=== PATIENT | female | born 1995 | race American Indian/Alaskan Native ===

== ENCOUNTER 2025-02-08 22:29 | Emergency (ER) | payer MEDICAID ==
[~2025-02-08] VITALS: Ht 162.6 cm; Wt 69.5 kg
[2025-02-08 22:33] VITALS: TEMP 98.2
--- NOTE | 2025-02-08 22:55 | ELECTROCARDIOGRAPH REPORT ---
[facility] Test Date: 2025-02-08 Test Time: 22:34:48 Pat Name: DAJUAN MARTIN Department: EMERGENCY ROOM Room: Gender: F Cleaning Manager: ROMY : 1995 Requested By: SHEMAR TREVINO Order Number: [id number] Reading MD: Dr. Guy Figueroa Measurements Intervals [place] Rate: 119 P: 55 NM: 151 QRS: 56 QRSD: 93 T: 21 QT: 329 QTc: 463 Interpretive Statements Sinus tachycardia Electronically Signed On 02-09-2025 6:24:[address] Guy Figueroa Please click the below link to view image of tracing.
[2025-02-08 22:57] LABS: BASOPHILS # (AUTO) 0.1 X10'3 (0-0.2); BASOPHILS % (AUTO) 1.3 % (0-1); EOSINOPHILS # (AUTO) 0.2 X10'3 (0-0.9); EOSINOPHILS % (AUTO) 3.6 % (0-6); HEMATOCRIT 37.8 % (35.0-45.0); HEMOGLOBIN 12.9 g/dl (12.0-16.0); LYMPHOCYTES # (AUTO) 1.8 X10'3 (1.1-4.8); LYMPHOCYTES % (AUTO) 29.1 % (21-51); MEAN CORPUSCULAR HEMOGLOBIN 29.1 PG (27.0-31.0); MEAN CORPUSCULAR HGB CONC 34.2 g/dL (33.0-36.5); MEAN CORPUSCULAR VOLUME 85.2 FL (78-98); MEAN PLATELET VOLUME 7.4 FL (7.4-10.4); MONOCYTES # (AUTO) 0.6 X10'3 (0-0.9); MONOCYTES % (AUTO) 9.6 % (2-12); NEUTROPHILS # (AUTO) 3.5 X10'3 (1.8-7.7); NEUTROPHILS % (AUTO) 56.4 % (42-75); PLATELET COUNT 309 X10'3 (140-440); RED BLOOD COUNT 4.44 X10'6 (4.20-5.60); RED CELL DISTRIBUTION WIDTH 12.7 % (11.5-14.5); WHITE BLOOD COUNT 6.1 X10'3 (4.5-11.0)
[2025-02-08 23:13] LABS: ALANINE AMINOTRANSFERASE 20 U/L (12-78); ALBUMIN/GLOBULIN RATIO 1.3 (1.1-1.5); ALKALINE PHOSPHATASE 50 IU/L (46-116); ANION GAP 11 (8-16); ASPARTATE AMINO TRANSFERASE 16 U/L (10-37); BILIRUBIN,TOTAL 0.3 MG/DL (0.1-1.0); BLOOD UREA NITROGEN 10 MG/DL (7-18); BUN/CREATININE RATIO 16.4 (10.0-20.0); CALCIUM 8.4 MG/DL (8.5-10.1); CHLORIDE 103 MMOL/L (99-107); CREATININE 0.61 MG/DL (0.40-0.90); GLUCOSE 126 MG/DL (70-104); POTASSIUM 3.4 MMOL/L (3.5-5.1); SODIUM 140 MMOL/L (135-145); TOTAL CARBON DIOXIDE 26.3 MMOL/L (24-32); eCRCL 119 ML/MIN; eGFR > 90 ML/MIN
--- NOTE | 2025-02-08 23:15 | RADIOLOGY REPORT ---
CHEST RADIOGRAPH Indication: chest pain Technique: Single frontal view of the chest was obtained COMPARISON: None FINDINGS: Lines and Tubes: None Lungs: Clear Pleura: No effusion. No pneumothorax. Cardiomediastinal contours: Unremarkable Bones: Unremarkable IMPRESSION: 1. No acute disease.
[2025-02-08 23:23] LABS: BILIRUBIN,URINE NEGATIVE (Neg); CLARITY,URINE CLEAR (Clear); COLOR,URINE YELLOW (Yellow); GLUCOSE, URINE NEGATIVE (Neg); KETONES,URINE NEGATIVE (Neg); LEUKOCYTE ESTERASE ,URINE NEGATIVE (Neg); NITRITES, URINE NEGATIVE (Neg); OCCULT BLOOD,URINE NEGATIVE (Neg); PROTEIN,URINE NEGATIVE (Neg); UA COLLECTION TYPE VOIDED; UROBILINOGEN,URINE 0.2 E.U/dL (0.2-1.0)
[2025-02-08 23:25] LABS: URINE HCG NEGATIVE (NEG)
[2025-02-08 23:30] LABS: URINE AMPHETAMINE SCREEN NEGATIVE (Neg); URINE BARBITUATE SCREEN NEGATIVE (Neg); URINE BENZODIAZEPINES SCREEN NEGATIVE (Neg); URINE CANNABINOID SCREEN POSITIVE (Neg); URINE COCAINE SCREEN NEGATIVE (Neg); URINE METHADONE SCREEN NEGATIVE (Neg); URINE OPIATE SCREEN NEGATIVE (Neg); URINE PHENCYCLIDINE SCREEN NEGATIVE (Neg)
--- NOTE | 2025-02-09 00:09 | Physician Documentation ---
History of Present Illness ~ Chief Complaint: Chest Pain Stated Complaint: CHEST PALPITATIONS Time Seen by MD: 22:34 Mode of Arrival: Ambulatory HPI 29 year old female reports an episode of sternal chest pain and pressure as well as tingling in her arms while driving, starting about 20 minutes prior to calling EMS. On arrival she is improved. Denies fever, cough, N/V/D, urinary symptoms. Medication Reconciliation Allergies: Uncoded Allergies: PCN (Allergy, Severe, RASH/HIVES, 02/08/25) Review of Systems All Other Systems at this time: Reviewed and Negative Physical Exam Vital Signs: RN Vital Signs have been reviewed: Yes, Temperature: 98.2, Source: Oral, Heart Rate: 123, Respiratory Rate: 16, BP: 123/86, Pulse Oximetry: 100, Weight: 69.540 Oxygen Flow Rate: 0 Physical Exam HEENT: PERRL, moist oral mucosa, EOMI Pulmonary: No respiratory distress Cardiac: RRR, no murmur, rub or gallop MSK: no deformity Skin: w/d/i, no rash Neuro: alert, nonfocal Psych: normal affect Progress Results/Orders Results/Orders Orders - SHEMAR TREVINO MD Chest,Single View (02/08/25 22:36) Completed Orders - SHEMAR TREVINO MD CMP (02/08/25 22:36) Cbc/Diff (02/08/25 22:36) Urinalysis, Cult If Indicated (02/08/25 22:36) Hcg, Ur Ql (02/08/25 22:36) Chest,Single View (02/08/25 22:36) Drug Screen, Urine (02/08/25 22:36) Troponin (Single) (02/08/25 22:39) Stat Ekg (02/08/25 ) Vital Signs 02/08/25 02/08/25 22:33 22:59 Temp 98.2 Pulse 123 Resp 22 16 B/P (MAP) 123/86 Pulse Ox 100 O2 Flow Rate 0 Laboratory Tests Test 02/08/25 22:45 02/08/25 22:50 White Blood Count 6.1 Red Blood Count 4.44 Hemoglobin 12.9 Hematocrit 37.8 Mean Corpuscular Volume 85.2 Mean Corpuscular Hemoglobin 29.1 Mean Corpuscular Hemoglobin Concent 34.2 Red Cell Distribution Width 12.7 Platelet Count 309 Mean Platelet Volume 7.4 Neutrophils (%) (Auto) 56.4 Lymphocytes (%) (Auto) 29.1 Monocytes (%) (Auto) 9.6 Eosinophils (%) (Auto) 3.6 Basophils (%) (Auto) 1.3 H Neutrophils # (Auto) 3.5 Lymphocytes # (Auto) 1.8 Monocytes # (Auto) 0.6 Eosinophils # (Auto) 0.2 Basophils # (Auto) 0.1 CBC Comment Sodium Level 140 Potassium Level 3.4 L Chloride Level 103 Carbon Dioxide Level 26.3 Anion Gap 11 Blood Urea Nitrogen 10 Creatinine 0.61 Estimated GFR/1.73 m2 > 90 BUN/Creatinine Ratio 16.4 Glucose Level 126 H Calcium Level 8.4 L Total Bilirubin 0.3 Aspartate Amino Transf (AST/SGOT) 16 Alanine Aminotransferase (ALT/SGPT) 20 Alkaline Phosphatase 50 Troponin I High Sensitivity < 4 L Total Protein 7.0 Albumin 4.0 Globulin 3.0 Albumin/Globulin Ratio 1.3 Chemistry Comments Urine Specimen Description Voided Urine Color Yellow Urine Clarity Clear Urine pH 6.0 Urine Specific [place] 1.010 Urine Protein Negative Urine Glucose (UA) Negative Urine Ketones Negative Urine Occult Blood Negative Urine Nitrite Negative Urine Bilirubin Negative Urine Urobilinogen 0.2 Urine Leukocyte Esterase Negative Urine Culture Indicated Not ind Volume Urine Centrifuged 10 ml Urine HCG, Qualitative Negative Urine Comment Urine Opiates Screen Negative Urine Methadone Screen Negative Urine Fentanyl Screen Negative Urine Barbiturates Screen Negative Urine Phencyclidine Screen Negative Urine Amphetamines Screen Negative Urine Benzodiazepines Screen Negative Urine Cocaine Screen Negative Urine Cannabinoids Screen Positive Drug Screen Comment EKG/XRAY/CT/US/VASC/MRI EKG : EKG: sinus tach [place]: normal Hypertrophy: none Additional Comment my interpretation: sinus tachycardia, no STEMI criteria, no dysrhythmia Chest X-Ray : Interpreted By: self Views: 1 VIEW Indication: chest pain Lungs: normal Mediastinum: normal Ribs/Bones: normal Abdomen: normal Impression: no acute disease Medical Decision Making Findings 30 year old female with chest pain episode. Tachycardic on arrival, exam benign. Workup also reassuring, with no evidence of serious pathology. Counseled, reassured, discharged with return precautions. Differential Dx:Considerations: Include: angina, myocardial infarction, pericarditis, pleuritis, pneumonia, pulmonary embolus Departure Disposition: HOME / SELF CARE / HOMELESS Impression: Primary Impression: Chest pain Condition: Stable Discharge Instructions: Nonspecific Chest Pain, Adult Referrals: NO PRIMARY CARE PROVIDER (PCP) Education Educated: Patient, Family Educated regarding: diagnosis, treatment, prognosis, need for follow up Signature Scribe Signature: . Attestation: SHEMAR ALMENDAREZ MD Feb 09, 2025 00:09
[2025-02-09 00:27] VITALS: BP 132/78; PULSE 101; RESP 18; O2SAT 99
== END 2025-02-09 00:27 | disposition home or self-care (01) ==
LOC: ER 22:31 → EDBD 22:31 → ER 02-09 00:27
DX: R07.2 Precordial pain (principal)
CPT/HCPCS: 36415; 71045; 80053; 80305; 81003; 81025; 84484; 85025; 93005; 99285